=== PATIENT | male | born 1980 | race Two or more races ===

== ENCOUNTER 2017-08-31 08:42 | Outpatient (CLI) | payer OTHER ==
[~2017-08-31] VITALS: Ht 152.4 cm; Wt 77.1 kg
== END 2017-08-31 09:00 | disposition home or self-care (01) ==
LOC: OFIC 805 08:42
DX: J38.3 Other diseases of vocal cords (principal); M54.2 Cervicalgia; K20.0 Eosinophilic esophagitis; R49.0 Dysphonia

== ENCOUNTER 2021-09-29 17:22 | Emergency (ER) | payer OTHER ==
[~2021-09-29] VITALS: Ht 167.6 cm; Wt 74.8 kg
[2021-09-29] MEDS ORDERED: PROTONIX20 MG (18:53)
[2021-09-29] MEDS ORDERED: COZAAR50 MG (18:54)
[2021-09-29] MEDS ORDERED: MEDROLPACK PO (21:12)
[2021-09-29] MEDS ORDERED: XOPENEX CO1.25 MG/0. IH (21:12)
[2021-09-29] MEDS ORDERED: TUSNEL LIQUID178 ML PO (21:12)
== END 2021-09-29 21:16 | disposition home or self-care (01) ==
LOC: ER 17:22
DX: J45.909 Unspecified asthma, uncomplicated (principal); Z20.822 Contact with and (suspected) exposure to COVID-19; I10 Essential (primary) hypertension; Z91.013 Allergy to seafood

== ENCOUNTER 2022-04-22 16:12 | Emergency (ER) | payer OTHER ==
[~2022-04-22] VITALS: Ht 167.6 cm; Wt 74.8 kg
[~2022-04-22 16:12] MED LIST: COZAAR50 MG; MEDROLPACK PO; PROTONIX20 MG; TUSNEL LIQUID178 ML PO; XOPENEX CO1.25 MG/0. IH
[2022-04-22] MEDS ORDERED: CIPRO500 MG PO (18:21)
[2022-04-22] MEDS ORDERED: PROTONIX40 MG PO (18:21)
[2022-04-22] MEDS ORDERED: METRONIDAZOLE500 MG PO (18:22)
== END 2022-04-22 18:41 | disposition home or self-care (01) ==
LOC: ER 16:12
DX: A04.8 Other specified bacterial intestinal infections (principal); Z91.013 Allergy to seafood

== ENCOUNTER 2023-02-08 09:22 | Emergency (ER) | payer OTHER ==
[~2023-02-08] VITALS: Ht 167.6 cm; Wt 74.8 kg
[~2023-02-08 09:22] MED LIST changes: +CIPRO500 MG PO; +METRONIDAZOLE500 MG PO; +PROTONIX40 MG PO
[2023-02-08 10:29] LABS: HEMATOCRIT 47.9 % (39.0-48.0); HEMOGLOBIN 16.4 g/dL (13-16.00); MEAN CORPUSCULAR HGB CONC 34.1 g/dl (32.0-36.0); PLATELET COUNT 267 K/uL (150-450); RED BLOOD COUNT 5.64 M/uL (4.00-6.00); RED CELL DISTRIBUTION WIDTH 13.3 % (11.5-14.5)
[2023-02-08] MEDS ORDERED: DICLOFENAC SODI75 MG PO (13:16)
[2023-02-08] MEDS ORDERED: BACTRIM DS TAB1 EACH PO (13:16)
[2023-02-08] MEDS ORDERED: MUPIROCIN15 GM TOP (13:16)
== END 2023-02-08 13:28 | disposition home or self-care (01) ==
LOC: ER 09:22
PROVIDERS: General Practice
DX: L02.91 Cutaneous abscess, unspecified (principal)